=== PATIENT | male | born 1960 | race Two or more races ===

== ENCOUNTER 2019-10-28 11:26 | Emergency (ER) | payer OTHER ==
[~2019-10-28] VITALS: Ht 170.2 cm; Wt 79.4 kg
[2019-10-28 17:01] VITALS: BP 130/61
== END 2019-10-28 18:03 | disposition home or self-care (01) ==
LOC: EDBD 11:26 → ER 11:35
DX: S09.8XXA Other specified injuries of head, initial encounter (principal); E78.5 Hyperlipidemia, unspecified; M19.90 Unspecified osteoarthritis, unspecified site; Z86.73 Personal history of transient ischemic attack (TIA), and cerebral infarction without residual deficits; W22.8XXA Striking against or struck by other objects, initial encounter; Y93.89 Activity, other specified; Y99.8 Other external cause status; Y92.89 Other specified places as the place of occurrence of the external cause
CPT/HCPCS: 70450; 93005